=== PATIENT | female | born 1940 | race Caucasian/White ===

== ENCOUNTER → 2016-05-16 | Outpatient (CLI) | payer OTHER ==
[~2016-05-16] MED LIST: ACETAMINOPHEN1 EAC4 PO; ALEVE220 MG PO; AMANTADINE100 MG PO; ASPIRIN325 MG PO; ASPIRIN81 M1 PO; BENADRYL25 MG PO; BUSPAR10 MG PO; BYSTOLIC10 MG PO; CALCIUM MAGNES1 EACH PO; CELEXA20 MG PO; CLARITIN10 M3 PO; DAILY VITAMIN1 EAC5 PO; DERMACINRX SIL1 EACH TP; DOXYCYCLINE HYC20 MG PO; DULCOLAX10 MG PR; FELODIPINE ER5 MG PO; FLUOXETINE HCL20 MG PO; GEMFIBROZIL600 MG PO; GLUCOTROL XL10 MG PO; HYDROCODON-ACE1 EAC7 PO; IBUPROFEN200 M1 PO; IRON325 MG PO; KLONOPIN0.5 M1 PO; LASIX20 MG PO; LISINOPRIL10 MG PO; LISINOPRIL20 MG PO; LISINOPRIL5 MG PO; METAMUCIL197.2 GM PO; METRONIDAZOLE45 G1 TP; MINOCYCLINE HC100 MG PO; MIRALAX17 GM PO; MUCINEX DM ER1 EACH PO; NASA MIST SALIN75 ML BOTH NARES; NUVIGIL200 MG PO; OLUX-E 0.05% FO50 GM TP; OMEPRAZOLE20 MG PO; OVEGA-3 SOFTGE1 EAC1 PO; PLENDIL5 M1 PO; PROVENTIL,2.5 MG/3 M IH; SIMVASTATIN20 MG PO; TRADJENTA5 MG PO; TRIANEX17 GM TP; ULTRAM50 MG PO; VITAMIN D22000 UNIT PO; VITAMIN D31000 UNIT PO; ZOLOFT100 MG PO
== END | disposition home or self-care (01) ==
DX: M17.12 Unilateral primary osteoarthritis, left knee (principal); R26.2 Difficulty in walking, not elsewhere classified; M62.81 Muscle weakness (generalized); M25.662 Stiffness of left knee, not elsewhere classified
CPT/HCPCS: 97110 GP; 97150 GO; 97161 GP; 97165 GO; G8978 GP; G8979 GP; G8980 GP; G8987 GO; G8988 GO; G8989 GO

== ENCOUNTER → 2016-12-12 | Outpatient (CLI) | payer OTHER ==
[~2016-12-12] VITALS: Ht 160 cm; Wt 94.0 kg
[~2016-12-12] MED LIST changes: +AMARYL2 MG PO; +CONSTULOSE10 GM/15 M PO; +CYANOCOBALAM1000 MCG PO; +DIOVAN160 MG PO; +LEXAPRO10 MG PO; +OXAYDO5 MG PO
[2016-12-12 07:19] VITALS: BP 203/88
[2016-12-12 07:21] VITALS: BP 165/80
== END | disposition home or self-care (01) ==
LOC: IVINF 07:13
PROVIDERS: Internal Medicine Endocrinology, Diabetes & Metabolism
DX: E27.40 Unspecified adrenocortical insufficiency (principal)
CPT/HCPCS: 80400; 82024 90; 82533 91; 96374; J0834

== ENCOUNTER 2017-05-09 13:05 | Emergency (ER) | payer OTHER ==
[~2017-05-09] VITALS: Ht 160 cm; Wt 89.6 kg
[2017-05-09 14:12] LABS: HEMATOCRIT 45.7 % (36.0-46.0); HEMOGLOBIN 15.7 G/DL (11.9-15.5); MCH 30.7 PG (29.0-34.0); MCHC 34.4 G/DL (30.0-36.0); MCV 89.3 FL (83-99); PLATELET COUNT 93 K/uL (156-360); RBC DIS.WIDTH-CV 14.7 % (11.8-14.6); RBC DIS.WIDTH-SD 48.3 % (39-53); RED BLOOD COUNT 5.12 M/uL (3.80-5.20)
[2017-05-09 14:28] LABS: ALBUMIN 3.2 g/dL (3.2-4.8); CHLORIDE 103 mEq/L (99-109); POTASSIUM 4.2 mEq/L (3.7-5.4); SODIUM 144 mEq/L (136-147)
[2017-05-09 14:30] LABS: GLUCOSE 108 mg/dL (70-99); TOTAL PROTEIN 6.9 g/dL (6.4-8.3)
[2017-05-09 14:32] LABS: TOTAL BILIRUBIN 1.1 mg/dL (0.0-1.0)
[2017-05-09 14:34] LABS: ALKALINE PHOSPHATASE 136 IU/L (3-129); CREATININE 0.7 mg/dL (0.6-1.3); GFR ESTIMATE (CALCULATED) > 59 mL/min/
[2017-05-09 14:35] LABS: UREA NITROGEN (BUN) 12 mg/dL (9-23)
[2017-05-09 14:36] LABS: AST (GOT) 43 IU/L (2-34)
[2017-05-09 14:37] LABS: ALT (GPT) 19 IU/L (3-49)
[2017-05-09 15:42] LABS: APPEARANCE SL.HAZY ((CLEAR)); BILIRUBIN NEGATIVE; BLOOD SMALL; COLOR YELLOW ((YELLOW)); GLUCOSE (STRIP) NEGATIVE; KETONES NEGATIVE; LEUKOCYTES TRACE; NITRITE NEGATIVE; PROTEIN (STRIP) 30; SPECIFIC GRAVITY 1.015 (1.000-1.030)
[2017-05-09 15:46] LABS: BACTERIA NONE SEEN /HPF; CALCIUM OXALATE CRYSTALS 1+ /HPF; EPITHELIAL CELLS 1+ /HPF; HYALINE CASTS 0-5 /LPF; MUCUS TRACE /LPF; RED BLOOD CELLS TNTC /HPF (0-5); UCUL ADDED? YES
[2017-05-09] MEDS ORDERED: ANTIVERT25 MG PO (20:36)
[2017-05-09 20:56] VITALS: BP 187/68
== END 2017-05-09 20:58 | disposition home or self-care (01) ==
LOC: EME 13:05
DX: R42 Dizziness and giddiness (principal); I10 Essential (primary) hypertension; E11.9 Type 2 diabetes mellitus without complications; E78.5 Hyperlipidemia, unspecified; K74.60 Unspecified cirrhosis of liver; F41.9 Anxiety disorder, unspecified; K21.9 Gastro-esophageal reflux disease without esophagitis; Z79.82 Long term (current) use of aspirin
CPT/HCPCS: 70450; 80053; 81003; 82948; 85027; 87086; 93005

== ENCOUNTER 2017-05-31 14:31 | Emergency (ER) | payer OTHER ==
[~2017-05-31] VITALS: Ht 160 cm; Wt 89.9 kg
[~2017-05-31 14:31] MED LIST changes: +ANTIVERT25 MG PO
[2017-05-31 16:38] LABS: HEMATOCRIT 45.2 % (36.0-46.0); HEMOGLOBIN 15.3 G/DL (11.9-15.5); MCH 30.4 PG (29.0-34.0); MCHC 33.8 G/DL (30.0-36.0); MCV 89.7 FL (83-99); PLATELET COUNT 108 K/uL (156-360); RBC DIS.WIDTH-CV 14.8 % (11.8-14.6); RBC DIS.WIDTH-SD 48.1 % (39-53); RED BLOOD COUNT 5.04 M/uL (3.80-5.20); WHITE BLOOD COUNT 5.9 K/uL (4.1-10.2)
[2017-05-31 16:46] LABS: ALBUMIN 3.5 g/dL (3.2-4.8)
[2017-05-31 16:47] LABS: CHLORIDE 103 mEq/L (99-109); POTASSIUM 3.2 mEq/L (3.7-5.4); SODIUM 142 mEq/L (136-147)
[2017-05-31 16:49] LABS: GLUCOSE 122 mg/dL (70-99); TOTAL PROTEIN 7.2 g/dL (6.4-8.3)
[2017-05-31 16:51] LABS: TOTAL BILIRUBIN 1.4 mg/dL (0.0-1.0)
[2017-05-31 16:52] LABS: ALKALINE PHOSPHATASE 125 IU/L (3-129)
[2017-05-31 16:53] LABS: CREATININE 0.7 mg/dL (0.6-1.3); GFR ESTIMATE (CALCULATED) > 59 mL/min/
[2017-05-31 16:54] LABS: AST (GOT) 39 IU/L (2-34); UREA NITROGEN (BUN) 14 mg/dL (9-23)
[2017-05-31 16:55] LABS: ALT (GPT) 17 IU/L (3-49)
[2017-05-31 16:56] LABS: LIPASE 13 U/L (1.0-51.0)
[2017-05-31 17:05] LABS: APPEARANCE CLEAR ((CLEAR)); BILIRUBIN NEGATIVE; BLOOD MODERATE; COLOR YELLOW ((YELLOW)); GLUCOSE (STRIP) NEGATIVE; KETONES NEGATIVE; LEUKOCYTES NEGATIVE; NITRITE NEGATIVE; PROTEIN (STRIP) NEGATIVE; SPECIFIC GRAVITY 1.018 (1.000-1.030)
[2017-05-31 17:17] LABS: BACTERIA RARE /HPF; EPITHELIAL CELLS NONE SEEN /HPF; HYALINE CASTS 0-5 /LPF; MUCUS TRACE /LPF; RED BLOOD CELLS TNTC /HPF (0-5); UCUL ADDED? YES
[2017-05-31] MEDS ORDERED: CITRATE OF MAG296 ML PO (17:42)
[2017-05-31] MEDS ORDERED: ZOFRAN ODT4 MG PO (17:42)
[2017-05-31 18:18] VITALS: BP 158/70
== END 2017-05-31 18:19 | disposition home or self-care (01) ==
LOC: EME 14:31
DX: R10.84 Generalized abdominal pain (principal); G89.29 Other chronic pain; K44.9 Diaphragmatic hernia without obstruction or gangrene; Z87.442 Personal history of urinary calculi; E11.9 Type 2 diabetes mellitus without complications; E78.5 Hyperlipidemia, unspecified; K74.60 Unspecified cirrhosis of liver; I10 Essential (primary) hypertension; L40.9 Psoriasis, unspecified; K21.9 Gastro-esophageal reflux disease without esophagitis; F41.9 Anxiety disorder, unspecified; Z79.82 Long term (current) use of aspirin
CPT/HCPCS: 80053; 81003; 83690; 85027; 87086; 99281; 99284

== ENCOUNTER → 2017-07-16 | Outpatient (CLI) | payer OTHER ==
[~2017-07-16] MED LIST changes: +CITRATE OF MAG296 ML PO; +ZOFRAN ODT4 MG PO
== END | disposition home or self-care (01) ==
LOC: NUC 06:49
DX: R11.0 Nausea (principal)
CPT/HCPCS: 78264; A9541

== ENCOUNTER 2017-10-04 19:37 | Emergency (ER) | payer OTHER ==
[~2017-10-04] VITALS: Ht 160 cm; Wt 81.8 kg
[2017-10-04 21:06] LABS: BASOPHIL (%) 0.7 % (0-1); EOSINOPHIL (%) 1.4 % (0-5); EOSINOPHIL COUNT 0.1 K/uL (0-0.3); HEMATOCRIT 42.7 % (36.0-46.0); HEMOGLOBIN 14.6 G/DL (11.9-15.5); IMMATURE GRANULOCYTE (%) 0.2 % (0.0-0.7); LYMPHOCYTE (%) 14.4 % (15-42); LYMPHOCYTE COUNT 0.6 K/uL (1.0-2.8); MCH 30.5 PG (29.0-34.0); MCHC 34.2 G/DL (30.0-36.0); MCV 89.3 FL (83-99); MONOCYTE COUNT 0.5 K/uL (0-0.8); NEUTROPHIL (%) 72.3 % (45-76); NEUTROPHIL COUNT 3.2 K/uL (1.8-6.4); PLATELET COUNT 96 K/uL (156-360); RBC DIS.WIDTH-CV 13.9 % (11.8-14.6); RBC DIS.WIDTH-SD 45.2 % (39-53); RED BLOOD COUNT 4.78 M/uL (3.80-5.20); WHITE BLOOD COUNT 4.4 K/uL (4.1-10.2)
[2017-10-04 21:23] LABS: CHLORIDE 104 mEq/L (99-109); POTASSIUM 3.6 mEq/L (3.7-5.4); SODIUM 141 mEq/L (136-147)
[2017-10-04 21:25] LABS: GLUCOSE 116 mg/dL (70-99); TOTAL PROTEIN 6.3 g/dL (6.4-8.3)
[2017-10-04 21:27] LABS: TOTAL BILIRUBIN 1.6 mg/dL (0.0-1.0)
[2017-10-04 21:28] LABS: ALKALINE PHOSPHATASE 102 IU/L (3-129)
[2017-10-04 21:29] LABS: CREATININE 0.7 mg/dL (0.6-1.3); GFR ESTIMATE (CALCULATED) > 59 mL/min/
[2017-10-04 21:30] LABS: AST (GOT) 41 IU/L (2-34); DIRECT BILIRUBIN 0.8 mg/dL (0.0-0.3); UREA NITROGEN (BUN) 13 mg/dL (9-23)
[2017-10-04 21:32] LABS: ALT (GPT) 15 IU/L (3-49); LIPASE 12 U/L (1.0-51.0)
[2017-10-04 21:36] LABS: TROP-I INTERPRETATION NEGATIVE; TROPONIN-I 0.01 ng/mL (0.0-0.30)
[2017-10-04 22:36] LABS: INTER. NORMALIZED RATIO 1.3
[2017-10-05 00:58] LABS: APPEARANCE CLEAR ((CLEAR)); BILIRUBIN NEGATIVE; BLOOD MODERATE; COLOR YELLOW ((YELLOW)); GLUCOSE (STRIP) NEGATIVE; KETONES 5; LEUKOCYTES TRACE; NITRITE NEGATIVE; PROTEIN (STRIP) 30; SPECIFIC GRAVITY 1.025 (1.000-1.030)
[2017-10-05 01:04] LABS: BACTERIA RARE /HPF; EPITHELIAL CELLS RARE /HPF; MUCUS TRACE /LPF; RED BLOOD CELLS TNTC /HPF (0-5); UCUL ADDED? YES
[2017-10-05] MEDS ORDERED: REGLAN5 MG PO (01:20)
[2017-10-05] MEDS ORDERED: MACROBID100 MG PO (01:22)
[2017-10-05 02:26] VITALS: BP 145/84
== END 2017-10-05 02:15 | disposition home or self-care (01) ==
LOC: EME 19:37
PROVIDERS: Emergency Medicine
DX: K31.84 Gastroparesis (principal); R31.9 Hematuria, unspecified; R06.02 Shortness of breath; K42.9 Umbilical hernia without obstruction or gangrene; R16.1 Splenomegaly, not elsewhere classified; K74.60 Unspecified cirrhosis of liver; R91.8 Other nonspecific abnormal finding of lung field; I45.10 Unspecified right bundle-branch block; I10 Essential (primary) hypertension; E78.5 Hyperlipidemia, unspecified; E11.9 Type 2 diabetes mellitus without complications; Z79.84 Long term (current) use of oral hypoglycemic drugs; Z79.82 Long term (current) use of aspirin; Z87.442 Personal history of urinary calculi; Z90.49 Acquired absence of other specified parts of digestive tract; Z90.710 Acquired absence of both cervix and uterus
CPT/HCPCS: 71046; 74177; 80048; 80076; 81003; 83690; 83880; 84484; 85025; 85610; 85730; 87086; 93005; 99281; 99285; J1200; J1630; J2270; J7030